=== PATIENT | male | born 1980 | race African-American/Black ===

== ENCOUNTER 2021-09-18 17:19 | Inpatient (IN) | payer OTHER ==
[2021-09-18] MEDS ORDERED: BISMUTH SUBSALICYLATE 524 MG/30 ML PO PRN (22:11)
[2021-09-18] MEDS ORDERED: MAG HYDROX/AL HYDROX/SIMETH 30 ML UNIT-DOSE CUP PO PRN (22:11)
[2021-09-18] MEDS ORDERED: guaiFENesin 200 MG/10 ML 10 ML UNIT-DOSE CUPS PO PRN (22:11)
[2021-09-18] MEDS ORDERED: MAGNESIUM HYDROX 2400MG/30ML ORAL SUSPENSION 30 ML CUP PO PRN (22:11)
[2021-09-18] MEDS ORDERED: MAGNESIUM CITRATE 300 ML BOTTLE PO PRN (22:11)
[2021-09-18] MEDS ORDERED: P-EPHED 60MG/TRIPROLIDI 2.5MG TABLET PO PRN (22:11)
[2021-09-18] MEDS ORDERED: DICYCLOMINE HCL 10 MG CAPSULE PO PRN (22:11)
[2021-09-18] MEDS ORDERED: ACETAMINOPHEN 325 MG TABLET (FP) PO PRN ×2 (22:11)
[2021-09-18] MEDS ORDERED: NICOTINE POLACRILEX 2 MG GUM BUC PRN (22:11)
[2021-09-18] MEDS ORDERED: ONDANSETRON *ODT* 4 MG TABLET SL PRN (22:11)
[2021-09-18] MEDS ORDERED: IBUPROFEN 400 MG TABLET (FP) PO PRN (22:11)
[2021-09-18] MEDS ORDERED: MENTHOL/PHENOL 1 EACH UD MM PRN (22:11)
[2021-09-18 22:48] VITALS: BMI 21.1
[2021-09-19] MEDS: hydrOXYzine PAMOATE 25 MG CAPSULE (FP) PO SCH ×5 (06:38→22:45)
[2021-09-19] MEDS ORDERED: LORazepam 1 MG TABLET PO PRN (10:33)
[2021-09-19] MEDS: PRENATAL VITAMINS W/ FOLIC ACID TABLET (FP) PO SCH (10:43)
[2021-09-19] MEDS: NICOTINE 14 MG/24 HOURS TOPICAL PATCH TD SCH (10:43)
[2021-09-19] MEDS: LORazepam 2 MG TABLET PO SCH ×3 (11:26→22:45)
[2021-09-19 13:30] LABS: CALCIUM 9.9 mg/dL (8.5-10.1)
[2021-09-19 13:33] LABS: BLOOD UREA NITROGEN 13.2 mg/dL (7-18)
[2021-09-19 13:34] LABS: CREATININE 0.7 mg/dL (0.55-1.3)
[2021-09-19 13:36] LABS: BILIRUBIN,TOTAL 1.5 mg/dL (0.2-1); TOT PROT 7.4 g/dl (6.4-8.2)
[2021-09-19 13:47] LABS: HEMATOCRIT 41.8 % (35.4-49); HEMOGLOBIN 13.9 GM/dL (11.7-16.9); MCH 32.7 pg (25.7-33.7); MCHC 33.1 g/dl (32.0-35.9); MEAN CELL VOLUME 98.7 fl (80-96); MEAN PLT VOLUME 10.3 fl (7.5-11.1); PLATELET COUNT 158 10^3/uL (134-434); RBC 4.24 M/mm3 (4.00-5.60); RDW 13.2 % (11.9-15.9); WHITE BLOOD COUNT 7.2 K/mm3 (4.0-10.0)
[2021-09-19] MEDS: THIAMINE HCL 100 MG TABLET (FP) PO SCH (22:45)
[2021-09-19] MEDS: MELATONIN 5 MG TABLETS PO SCH (22:45)
[2021-09-20] MEDS: hydrOXYzine PAMOATE 25 MG CAPSULE (FP) PO SCH ×5 (06:34→22:16)
[2021-09-20] MEDS: LORazepam 2 MG TABLET PO SCH ×4 (06:34→22:16)
[2021-09-20] MEDS: PRENATAL VITAMINS W/ FOLIC ACID TABLET (FP) PO SCH (10:39)
[2021-09-20] MEDS: NICOTINE 14 MG/24 HOURS TOPICAL PATCH TD SCH (10:39)
[2021-09-20] MEDS: MELATONIN 5 MG TABLETS PO SCH (22:15)
[2021-09-20] MEDS: THIAMINE HCL 100 MG TABLET (FP) PO SCH (22:16)
[2021-09-21] MEDS: hydrOXYzine PAMOATE 25 MG CAPSULE (FP) PO SCH ×5 (06:00→22:35)
[2021-09-21] MEDS: LORazepam 1 MG TABLET PO SCH ×4 (06:00→22:36)
[2021-09-21] MEDS: PRENATAL VITAMINS W/ FOLIC ACID TABLET (FP) PO SCH (10:54)
[2021-09-21] MEDS: METHOCARBAMOL 500 MG TABLET PO PRN (10:54)
[2021-09-21] MEDS: NICOTINE 14 MG/24 HOURS TOPICAL PATCH TD SCH (11:17)
[2021-09-21] MEDS: NICOTINE 10 MG CARTRIDGE (INHALER) IH PRN (13:35)
[2021-09-21] MEDS: MELATONIN 5 MG TABLETS PO SCH (22:35)
[2021-09-21] MEDS: THIAMINE HCL 100 MG TABLET (FP) PO SCH (22:36)
[2021-09-22] MEDS ORDERED: LORazepam 0.5 MG TABLET PO PRN
[2021-09-22] MEDS: hydrOXYzine PAMOATE 25 MG CAPSULE (FP) PO SCH ×5 (06:27→22:04)
[2021-09-22] MEDS: LORazepam 0.5 MG TABLET PO SCH ×4 (06:28→22:04)
[2021-09-22] MEDS: METHOCARBAMOL 500 MG TABLET PO PRN (10:46)
[2021-09-22] MEDS: PRENATAL VITAMINS W/ FOLIC ACID TABLET (FP) PO SCH (10:46)
[2021-09-22] MEDS: NICOTINE 14 MG/24 HOURS TOPICAL PATCH TD SCH (10:47)
[2021-09-22] MEDS: NICOTINE 10 MG CARTRIDGE (INHALER) IH PRN (17:50)
[2021-09-22] MEDS: THIAMINE HCL 100 MG TABLET (FP) PO SCH (22:05)
[2021-09-22] MEDS: MELATONIN 5 MG TABLETS PO SCH (22:05)
[2021-09-23] MEDS ORDERED: LORazepam 0.5 MG TABLET PO ONE (05:00)
[2021-09-23] MEDS: hydrOXYzine PAMOATE 25 MG CAPSULE (FP) PO SCH ×2 (06:28→10:57)
[2021-09-23 09:16] VITALS: BP 109/67; PULSE 95; TEMP 97.3
[2021-09-23] MEDS: NICOTINE 14 MG/24 HOURS TOPICAL PATCH TD SCH (10:57)
[2021-09-23] MEDS: PRENATAL VITAMINS W/ FOLIC ACID TABLET (FP) PO SCH (10:57)
[2021-09-25 12:15] LABS: SARS-CoV-2 NAA Not Detected
== END 2021-09-23 10:28 | disposition home or self-care (01) | DRG 775 ==
LOC: YASAS 17:19 → Y6N 09-19 01:49
PROVIDERS: ADMIT Allergy & Immunology; ATTEND Allergy & Immunology
PROC: HZ2ZZZZ Detoxification Services for Substance Abuse Treatment (ICD-10-PCS; principal; 2021-09-19)
DX: F10.230 Alcohol dependence with withdrawal, uncomplicated (principal); F12.20 Cannabis dependence, uncomplicated; F17.210 Nicotine dependence, cigarettes, uncomplicated; F19.282 Other psychoactive substance dependence with psychoactive substance-induced sleep disorder; F19.24 Other psychoactive substance dependence with psychoactive substance-induced mood disorder; E80.6 Other disorders of bilirubin metabolism; J45.20 Mild intermittent asthma, uncomplicated; L80 Vitiligo; Z56.0 Unemployment, unspecified; Z59.00 Homelessness unspecified
CPT/HCPCS: 36415; 80053; 85027; 86780; 93005; 93010; C9803; U0003; U0005

== ENCOUNTER 2023-07-13 15:25 | Inpatient (IN) | payer OTHER ==
[2023-07-13 16:42] VITALS: BMI 22.0
[2023-07-13] MEDS ORDERED: BENZOCAINE/MENTHOL (CHLORASEPTIC ) LOZENGE MM PRN (18:50)
[2023-07-13] MEDS ORDERED: NICOTINE POLACRILEX 2 MG GUM BUC PRN (18:50)
[2023-07-13] MEDS ORDERED: BISMUTH SUBSALICYLATE 524 MG/30 ML PO PRN (18:50)
[2023-07-13] MEDS ORDERED: POLYETHYLENE GLYCOL (HEALTHYLAX) 3350 17 GM PACKET PO PRN (18:50)
[2023-07-13] MEDS ORDERED: hydrOXYzine PAMOATE 25 MG CAPSULE (FP) PO PRN (18:50)
[2023-07-13] MEDS ORDERED: IBUPROFEN 600 MG TABLET (FP) PO PRN (18:50)
[2023-07-13] MEDS ORDERED: ACETAMINOPHEN 325 MG TABLET (FP) PO PRN (18:50)
[2023-07-13] MEDS ORDERED: MAG HYDROX/AL HYDROX/SIMETH 30 ML UNIT-DOSE CUP PO PRN (18:50)
[2023-07-13] MEDS ORDERED: NALOXONE HCL (KLOXXADO) 8 MG SPRAY NS PRN (18:50)
[2023-07-13] MEDS ORDERED: MAGNESIUM HYDROX 2400MG/30ML ORAL SUSPENSION 30 ML CUP PO PRN (18:50)
[2023-07-13] MEDS ORDERED: IBUPROFEN 400 MG TABLET (FP) PO PRN (18:50)
[2023-07-13] MEDS ORDERED: ONDANSETRON *ODT* 4 MG TABLET SL PRN (18:50)
[2023-07-13] MEDS ORDERED: guaiFENesin 600 MG TABLET.ER (FP) PO PRN (18:50)
[2023-07-13] MEDS ORDERED: BENZONATATE 200 MG CAPSULE PO PRN (18:50)
[2023-07-13] MEDS ORDERED: METHOCARBAMOL 500 MG TABLET PO PRN (18:50)
[2023-07-13] MEDS ORDERED: LOPERAMIDE HCL 2 MG CAPSULE PO PRN (18:50)
[2023-07-13] MEDS ORDERED: NALOXONE HCL 0.4 MG/ML VIAL IM PRN (18:50)
[2023-07-13] MEDS ORDERED: DICYCLOMINE HCL 10 MG CAPSULE PO PRN (18:50)
[2023-07-13] MEDS ORDERED: THIAMINE HCL 100 MG TABLET (FP) PO SCH (22:00)
[2023-07-13] MEDS ORDERED: MELATONIN 5 MG TABLETS PO SCH (22:00)
[2023-07-14] MEDS ORDERED: ALBUTEROL SO4 HFA INHALER IH PRN (09:15)
[2023-07-14] MEDS ORDERED: PRENATAL VITAMINS W/ FOLIC ACID TABLET (FP) PO SCH (10:00)
[2023-07-14] MEDS ORDERED: NICOTINE 14 MG/24 HOURS TOPICAL PATCH TD SCH (10:00)
[2023-07-14 10:40] LABS: CHLORIDE 104 mmol/L (98-107); POTASSIUM 3.8 mmol/L (3.5-5.1); SODIUM 138 mmol/L (136-145)
[2023-07-14 10:44] LABS: HEMATOCRIT 37.6 % (35.4-49); HEMOGLOBIN 12.6 GM/dL (11.7-16.9); MCH 33.4 pg (25.7-33.7); MCHC 33.4 g/dl (32.0-35.9); MEAN PLT VOLUME 9.5 fl (7.5-11.1); PLATELET COUNT 171 10^3/uL (134-434); RBC 3.76 M/mm3 (4.00-5.60); RDW 14.9 % (11.9-15.9); WHITE BLOOD COUNT 6.6 K/mm3 (4.0-10.0)
[2023-07-14 10:45] LABS: ALBUMIN 2.9 g/dl (3.4-5.0); BLOOD UREA NITROGEN 14.9 mg/dL (7-18); GLUCOSE,RANDOM 86 mg/dL (74-106)
[2023-07-14 10:46] LABS: ANION GAP 5 mmol/L (4-13); CO2 28 mmol/L (21-32)
[2023-07-14 10:47] LABS: CREATININE 0.7 mg/dL (0.55-1.3); SGOT/AST 17 U/L (15-37); SGPT/ALT 24 U/L (13-61)
[2023-07-14 10:48] LABS: CALCIUM 8.4 mg/dL (8.5-10.1)
[2023-07-14 10:49] LABS: BILIRUBIN,TOTAL 1.4 mg/dL (0.2-1); TOT PROT 5.5 g/dl (6.4-8.2)
[2023-07-14 10:50] LABS: ALK PHOS 42 U/L (45-117)
[2023-07-14 13:19] VITALS: BP 126/79; PULSE 84; RESP 17; TEMP 96.8
== END 2023-07-14 14:13 | disposition other institution (70) | DRG 775 ==
LOC: YASAS 15:25 → Y3N 19:30
PROVIDERS: ADMIT Allergy & Immunology; ATTEND Surgery
PROC: HZ2ZZZZ Detoxification Services for Substance Abuse Treatment (ICD-10-PCS; principal; 2023-07-13)
DX: F10.20 Alcohol dependence, uncomplicated (principal); F12.20 Cannabis dependence, uncomplicated; F17.210 Nicotine dependence, cigarettes, uncomplicated; F41.9 Anxiety disorder, unspecified; F32.A Depression, unspecified; J45.20 Mild intermittent asthma, uncomplicated
CPT/HCPCS: 36415; 80053; 80307; 85027; 86780; 87635

== ENCOUNTER 2023-07-14 14:22 | Inpatient (IN) | payer OTHER ==
[2023-07-14] MEDS ORDERED: METHOCARBAMOL 500 MG TABLET PO PRN (15:50)
[2023-07-14] MEDS ORDERED: hydrOXYzine PAMOATE 25 MG CAPSULE (FP) PO PRN (15:50)
[2023-07-14] MEDS ORDERED: LOPERAMIDE HCL 2 MG CAPSULE PO PRN (15:50)
[2023-07-14] MEDS ORDERED: MAGNESIUM HYDROX 2400MG/30ML ORAL SUSPENSION 30 ML CUP PO PRN (15:50)
[2023-07-14] MEDS ORDERED: BENZONATATE 200 MG CAPSULE PO PRN (15:50)
[2023-07-14] MEDS ORDERED: POLYETHYLENE GLYCOL (HEALTHYLAX) 3350 17 GM PACKET PO PRN (15:50)
[2023-07-14] MEDS ORDERED: NALOXONE HCL 0.4 MG/ML VIAL IVPUSH PRN (15:50)
[2023-07-14] MEDS ORDERED: ACETAMINOPHEN 325 MG TABLET (FP) PO PRN (15:50)
[2023-07-14] MEDS ORDERED: guaiFENesin 600 MG TABLET.ER (FP) PO PRN (15:50)
[2023-07-14] MEDS ORDERED: COLLOIDAL OATMEAL 1 BAR EACH TP PRN (15:50)
[2023-07-14] MEDS ORDERED: MAG HYDROX/AL HYDROX/SIMETH 30 ML UNIT-DOSE CUP PO PRN (15:50)
[2023-07-14] MEDS ORDERED: NICOTINE POLACRILEX 4 MG GUM BUC PRN (15:50)
[2023-07-14] MEDS ORDERED: NALOXONE HCL (KLOXXADO) 8 MG SPRAY NS PRN (15:50)
[2023-07-14] MEDS ORDERED: NICOTINE 14 MG/24 HOURS TOPICAL PATCH TD PRN (15:50)
[2023-07-14] MEDS ORDERED: BENZOCAINE/MENTHOL (CHLORASEPTIC ) LOZENGE MM PRN (15:50)
[2023-07-14] MEDS ORDERED: ALBUTEROL SO4 HFA INHALER IH PRN (15:52)
[2023-07-14] MEDS: CLOTRIMAZOLE 10 MG TROCHE PO SCH ×2 (18:40→21:29)
[2023-07-14] MEDS: THIAMINE HCL 100 MG TABLET (FP) PO SCH (21:28)
[2023-07-14] MEDS: MELATONIN 5 MG TABLETS PO SCH (21:28)
[2023-07-15] MEDS: CLOTRIMAZOLE 10 MG TROCHE PO SCH ×5 (06:52→21:00)
[2023-07-15] MEDS: PRENATAL VITAMINS W/ FOLIC ACID TABLET (FP) PO SCH (10:11)
[2023-07-15] MEDS: LACTULOSE 20 GM/30 ML UDC (FOR ORAL USE ONLY) PO SCH ×2 (14:35→21:00)
[2023-07-15] MEDS: MELATONIN 5 MG TABLETS PO SCH (21:00)
[2023-07-15] MEDS: THIAMINE HCL 100 MG TABLET (FP) PO SCH (21:00)
[2023-07-16] MEDS: LACTULOSE 20 GM/30 ML UDC (FOR ORAL USE ONLY) PO SCH (05:59)
[2023-07-16] MEDS: CLOTRIMAZOLE 10 MG TROCHE PO SCH ×5 (06:00→21:22)
[2023-07-16] MEDS: PRENATAL VITAMINS W/ FOLIC ACID TABLET (FP) PO SCH (09:43)
[2023-07-16] MEDS: MELATONIN 5 MG TABLETS PO SCH (21:22)
[2023-07-16] MEDS: THIAMINE HCL 100 MG TABLET (FP) PO SCH (21:22)
[2023-07-17] MEDS: CLOTRIMAZOLE 10 MG TROCHE PO SCH (06:24)
[2023-07-17] MEDS ORDERED: diphenhydrAMINE HCL 25 MG CAPSULE (FP) PO PRN (09:18)
[2023-07-17] MEDS ORDERED: HYDROCORTISONE 1% TOPICAL OINT 30 GM TUBE TP PRN (09:18)
[2023-07-17] MEDS: PRENATAL VITAMINS W/ FOLIC ACID TABLET (FP) PO SCH (10:48)
[2023-07-17] MEDS: THIAMINE HCL 100 MG TABLET (FP) PO SCH (21:19)
[2023-07-17] MEDS: MELATONIN 5 MG TABLETS PO SCH (21:19)
[2023-07-18] MEDS: IBUPROFEN 600 MG TABLET (FP) PO PRN (10:02)
[2023-07-18] MEDS: PRENATAL VITAMINS W/ FOLIC ACID TABLET (FP) PO SCH (10:02)
[2023-07-18] MEDS: THIAMINE HCL 100 MG TABLET (FP) PO SCH (21:23)
[2023-07-18] MEDS: MELATONIN 5 MG TABLETS PO SCH (21:23)
[2023-07-19] MEDS: PRENATAL VITAMINS W/ FOLIC ACID TABLET (FP) PO SCH (10:23)
[2023-07-19] MEDS: THIAMINE HCL 100 MG TABLET (FP) PO SCH (21:05)
[2023-07-19] MEDS: MELATONIN 5 MG TABLETS PO SCH (21:05)
[2023-07-19] MEDS: IBUPROFEN 600 MG TABLET (FP) PO PRN (21:06)
[2023-07-20] MEDS: PRENATAL VITAMINS W/ FOLIC ACID TABLET (FP) PO SCH (09:49)
[2023-07-20] MEDS: MELATONIN 5 MG TABLETS PO SCH (21:37)
[2023-07-20] MEDS: THIAMINE HCL 100 MG TABLET (FP) PO SCH (21:37)
[2023-07-20] MEDS: IBUPROFEN 400 MG TABLET (FP) PO PRN (21:40)
[2023-07-21] MEDS: PRENATAL VITAMINS W/ FOLIC ACID TABLET (FP) PO SCH ×2 (10:35→10:59)
[2023-07-21] MEDS: IBUPROFEN 600 MG TABLET (FP) PO PRN (14:20)
[2023-07-21] MEDS: MELATONIN 5 MG TABLETS PO SCH (21:25)
[2023-07-21] MEDS: THIAMINE HCL 100 MG TABLET (FP) PO SCH (21:25)
[2023-07-21] MEDS: IBUPROFEN 400 MG TABLET (FP) PO PRN (21:45)
[2023-07-22] MEDS: PRENATAL VITAMINS W/ FOLIC ACID TABLET (FP) PO SCH (09:58)
[2023-07-22] MEDS: MELATONIN 5 MG TABLETS PO SCH (21:22)
[2023-07-22] MEDS: IBUPROFEN 400 MG TABLET (FP) PO PRN (21:22)
[2023-07-22] MEDS: THIAMINE HCL 100 MG TABLET (FP) PO SCH (21:22)
[2023-07-23 07:06] VITALS: TEMP 97.5
[2023-07-23] MEDS: PRENATAL VITAMINS W/ FOLIC ACID TABLET (FP) PO SCH (10:12)
[2023-07-23] MEDS: THIAMINE HCL 100 MG TABLET (FP) PO SCH (21:01)
[2023-07-23] MEDS: MELATONIN 5 MG TABLETS PO SCH (21:01)
[2023-07-23] MEDS: IBUPROFEN 400 MG TABLET (FP) PO PRN (21:02)
[2023-07-24] MEDS: PRENATAL VITAMINS W/ FOLIC ACID TABLET (FP) PO SCH (09:37)
[2023-07-24] MEDS: IBUPROFEN 400 MG TABLET (FP) PO PRN (18:50)
[2023-07-24] MEDS: MELATONIN 5 MG TABLETS PO SCH (21:19)
[2023-07-24] MEDS: THIAMINE HCL 100 MG TABLET (FP) PO SCH (21:19)
[2023-07-25 07:09] VITALS: BP 107/52; PULSE 99; RESP 18
[2023-07-25] MEDS: IBUPROFEN 600 MG TABLET (FP) PO PRN (07:10)
[2023-07-25] MEDS: PRENATAL VITAMINS W/ FOLIC ACID TABLET (FP) PO SCH (10:05)
== END 2023-07-25 10:43 | disposition home or self-care (01) | DRG 772 ==
LOC: YASAS 14:22 → Y3W 14:23
PROVIDERS: ADMIT Allergy & Immunology; ATTEND Psychiatry & Neurology Pain Medicine
PROC: HZ42ZZZ Group Counseling for Substance Abuse Treatment, Cognitive-Behavioral (ICD-10-PCS; principal; 2023-07-14)
DX: F10.20 Alcohol dependence, uncomplicated (principal); F17.210 Nicotine dependence, cigarettes, uncomplicated; F32.A Depression, unspecified; E72.20 Disorder of urea cycle metabolism, unspecified; J45.20 Mild intermittent asthma, uncomplicated; L80 Vitiligo; L27.1 Localized skin eruption due to drugs and medicaments taken internally; T47.3X5A Adverse effect of saline and osmotic laxatives, initial encounter; Y92.230 Patient room in hospital as the place of occurrence of the external cause
CPT/HCPCS: 36415; 82140; 86803

== ENCOUNTER 2023-09-01 14:34 | Inpatient (IN) | payer OTHER ==
[2023-09-01 15:48] VITALS: BMI 22.5
[2023-09-01] MEDS ORDERED: MAG HYDROX/AL HYDROX/SIMETH 30 ML UNIT-DOSE CUP PO PRN (17:40)
[2023-09-01] MEDS ORDERED: NICOTINE POLACRILEX 2 MG GUM BUC PRN (17:40)
[2023-09-01] MEDS ORDERED: BENZOCAINE/MENTHOL (CHLORASEPTIC ) LOZENGE MM PRN (17:40)
[2023-09-01] MEDS ORDERED: IBUPROFEN 400 MG TABLET (FP) PO PRN (17:40)
[2023-09-01] MEDS ORDERED: DICYCLOMINE HCL 10 MG CAPSULE PO PRN (17:40)
[2023-09-01] MEDS ORDERED: MAGNESIUM HYDROX 2400MG/30ML ORAL SUSPENSION 30 ML CUP PO PRN (17:40)
[2023-09-01] MEDS ORDERED: POLYETHYLENE GLYCOL (HEALTHYLAX) 3350 17 GM PACKET PO PRN (17:40)
[2023-09-01] MEDS ORDERED: ACETAMINOPHEN 325 MG TABLET (FP) PO PRN (17:40)
[2023-09-01] MEDS ORDERED: BENZONATATE 200 MG CAPSULE PO PRN (17:40)
[2023-09-01] MEDS ORDERED: P-EPHED 60MG/TRIPROLIDI 2.5MG TABLET PO PRN (17:40)
[2023-09-01] MEDS ORDERED: BISMUTH SUBSALICYLATE 524 MG/30 ML PO PRN (17:40)
[2023-09-01] MEDS ORDERED: LOPERAMIDE HCL 2 MG CAPSULE PO PRN (17:40)
[2023-09-01] MEDS ORDERED: ONDANSETRON *ODT* 4 MG TABLET SL PRN (17:40)
[2023-09-01] MEDS ORDERED: IBUPROFEN 600 MG TABLET (FP) PO PRN (17:40)
[2023-09-01] MEDS ORDERED: guaiFENesin 600 MG TABLET.ER (FP) PO PRN (17:40)
[2023-09-01] MEDS ORDERED: chlordiazePOXIDE HCL 25 MG CAPSULE PO PRN (17:42)
[2023-09-01] MEDS ORDERED: ALBUTEROL SO4 HFA INHALER IH PRN (19:11)
[2023-09-01] MEDS: THIAMINE HCL 100 MG TABLET (FP) PO SCH (22:25)
[2023-09-01] MEDS: MELATONIN 5 MG TABLETS PO SCH (22:25)
[2023-09-01] MEDS: chlordiazePOXIDE HCL 25 MG CAPSULE PO SCH (22:25)
[2023-09-01] MEDS: levETIRAcetam XR 500 MG TAB PO SCH (22:40)
[2023-09-01] MEDS: BUDESONIDE/FORMETEROL FUMARATE 160/4.5 mcg INHALER IH SCH (22:59)
[2023-09-02] MEDS: chlordiazePOXIDE HCL 25 MG CAPSULE PO SCH ×4 (05:19→22:22)
[2023-09-02] MEDS: levETIRAcetam XR 500 MG TAB PO SCH ×2 (10:18→22:23)
[2023-09-02] MEDS: PRENATAL VITAMINS W/ FOLIC ACID TABLET (FP) PO SCH (10:18)
[2023-09-02] MEDS: BUDESONIDE/FORMETEROL FUMARATE 160/4.5 mcg INHALER IH SCH ×2 (10:19→22:23)
[2023-09-02 11:33] LABS: HEMATOCRIT 40.5 % (35.4-49); HEMOGLOBIN 13.3 GM/dL (11.7-16.9); MCH 31.9 pg (25.7-33.7); MCHC 32.7 g/dl (32.0-35.9); MEAN CELL VOLUME 97.5 fl (80-96); MEAN PLT VOLUME 9.6 fl (7.5-11.1); PLATELET COUNT 181 10^3/uL (134-434); RBC 4.16 M/mm3 (4.00-5.60); RDW 13.4 % (11.9-15.9); WHITE BLOOD COUNT 3.5 K/mm3 (4.0-10.0)
[2023-09-02 11:40] LABS: CHLORIDE 104 mmol/L (98-107); POTASSIUM 3.8 mmol/L (3.5-5.1); SODIUM 137 mmol/L (136-145)
[2023-09-02 11:57] LABS: ANION GAP 3 mmol/L (4-13); CO2 29 mmol/L (21-32)
[2023-09-02 15:35] LABS: CALCIUM 9.3 mg/dL (8.5-10.1)
[2023-09-02 15:36] LABS: BLOOD UREA NITROGEN 6.2 mg/dL (7-18); GLUCOSE,RANDOM 90 mg/dL (74-106)
[2023-09-02 15:39] LABS: CREATININE 0.7 mg/dL (0.55-1.3); SGOT/AST 19 U/L (15-37); SGPT/ALT 22 U/L (13-61)
[2023-09-02 15:41] LABS: BILIRUBIN,TOTAL 0.7 mg/dL (0.2-1); TOT PROT 5.8 g/dl (6.4-8.2)
[2023-09-02 15:42] LABS: ALK PHOS 59 U/L (45-117)
[2023-09-02] MEDS: THIAMINE HCL 100 MG TABLET (FP) PO SCH (22:22)
[2023-09-02] MEDS: MELATONIN 5 MG TABLETS PO SCH (22:22)
[2023-09-03] MEDS: chlordiazePOXIDE HCL 25 MG CAPSULE PO SCH ×4 (05:19→22:55)
[2023-09-03] MEDS: PRENATAL VITAMINS W/ FOLIC ACID TABLET (FP) PO SCH (10:21)
[2023-09-03] MEDS: levETIRAcetam XR 500 MG TAB PO SCH ×2 (10:21→22:12)
[2023-09-03] MEDS: BUDESONIDE/FORMETEROL FUMARATE 160/4.5 mcg INHALER IH SCH ×2 (10:27→23:12)
[2023-09-03] MEDS: MELATONIN 5 MG TABLETS PO SCH (22:12)
[2023-09-03] MEDS: THIAMINE HCL 100 MG TABLET (FP) PO SCH (22:13)
[2023-09-04] MEDS ORDERED: chlordiazePOXIDE HCL 10 MG CAPSULE PO PRN
[2023-09-04] MEDS: chlordiazePOXIDE HCL 10 MG CAPSULE PO SCH ×4 (05:50→22:54)
[2023-09-04] MEDS ORDERED: guaiFENesin 200 MG/10 ML 10 ML UNIT-DOSE CUPS PO PRN (10:17)
[2023-09-04] MEDS: PRENATAL VITAMINS W/ FOLIC ACID TABLET (FP) PO SCH (10:18)
[2023-09-04] MEDS: levETIRAcetam XR 500 MG TAB PO SCH ×2 (10:18→22:52)
[2023-09-04] MEDS: BUDESONIDE/FORMETEROL FUMARATE 160/4.5 mcg INHALER IH SCH ×2 (10:19→22:54)
[2023-09-04] MEDS: BENZONATATE 200 MG CAPSULE PO SCH ×2 (10:40→17:38)
[2023-09-04] MEDS ORDERED: AZITHROMYCIN 250 MG TABLET PO ONE (16:41)
[2023-09-04] MEDS: MELATONIN 5 MG TABLETS PO SCH (22:53)
[2023-09-04] MEDS: THIAMINE HCL 100 MG TABLET (FP) PO SCH (22:53)
[2023-09-05] MEDS: BENZONATATE 200 MG CAPSULE PO SCH ×2 (02:50→09:53)
[2023-09-05] MEDS ORDERED: chlordiazePOXIDE HCL 10 MG CAPSULE PO SCH (05:00)
[2023-09-05] MEDS: levETIRAcetam XR 500 MG TAB PO SCH (09:53)
[2023-09-05] MEDS: PRENATAL VITAMINS W/ FOLIC ACID TABLET (FP) PO SCH (09:53)
[2023-09-05] MEDS: BUDESONIDE/FORMETEROL FUMARATE 160/4.5 mcg INHALER IH SCH (09:54)
[2023-09-05] MEDS ORDERED: AZITHROMYCIN 250 MG TABLET PO SCH (10:00)
[2023-09-05 10:48] VITALS: PULSE 95; RESP 18
[2023-09-05 13:03] VITALS: BP 103/57; TEMP 97.3
[2023-09-06] MEDS ORDERED: chlordiazePOXIDE HCL 10 MG CAPSULE PO ONE (05:00)
== END 2023-09-05 15:45 | disposition home or self-care (01) | DRG 775 ==
LOC: YASAS 14:34 → Y6N 18:14
PROVIDERS: ADMIT Allergy & Immunology; ATTEND Allergy & Immunology
PROC: HZ2ZZZZ Detoxification Services for Substance Abuse Treatment (ICD-10-PCS; principal; 2023-09-01)
DX: F10.230 Alcohol dependence with withdrawal, uncomplicated (principal); F12.20 Cannabis dependence, uncomplicated; F17.210 Nicotine dependence, cigarettes, uncomplicated; U07.1 COVID-19; G40.909 Epilepsy, unspecified, not intractable, without status epilepticus; J45.20 Mild intermittent asthma, uncomplicated; Z56.0 Unemployment, unspecified; Z59.00 Homelessness unspecified
CPT/HCPCS: 0241U-QW; 36415; 71045-TC-FY; 80053; 80307; 85027; 86780; 87635

== ENCOUNTER 2023-09-23 16:36 | Inpatient (IN) | payer OTHER ==
[2023-09-23 18:09] VITALS: BMI 24.3
[2023-09-23] MEDS ORDERED: POLYETHYLENE GLYCOL (HEALTHYLAX) 3350 17 GM PACKET PO PRN (20:23)
[2023-09-23] MEDS ORDERED: ACETAMINOPHEN 325 MG TABLET (FP) PO PRN (20:23)
[2023-09-23] MEDS ORDERED: MAGNESIUM HYDROX 2400MG/30ML ORAL SUSPENSION 30 ML CUP PO PRN (20:23)
[2023-09-23] MEDS ORDERED: BENZOCAINE/MENTHOL (CHLORASEPTIC ) LOZENGE MM PRN (20:23)
[2023-09-23] MEDS ORDERED: MAG HYDROX/AL HYDROX/SIMETH 30 ML UNIT-DOSE CUP PO PRN (20:23)
[2023-09-23] MEDS ORDERED: NICOTINE POLACRILEX 2 MG GUM BUC PRN (20:23)
[2023-09-23] MEDS ORDERED: DICYCLOMINE HCL 10 MG CAPSULE PO PRN (20:23)
[2023-09-23] MEDS ORDERED: LOPERAMIDE HCL 2 MG CAPSULE PO PRN (20:23)
[2023-09-23] MEDS ORDERED: NALOXONE HCL 0.4 MG/ML VIAL IM PRN (20:23)
[2023-09-23] MEDS ORDERED: NALOXONE HCL (KLOXXADO) 8 MG SPRAY NS PRN (20:23)
[2023-09-23] MEDS ORDERED: IBUPROFEN 400 MG TABLET (FP) PO PRN (20:23)
[2023-09-23] MEDS ORDERED: ONDANSETRON *ODT* 4 MG TABLET SL PRN (20:23)
[2023-09-23] MEDS ORDERED: BENZONATATE 200 MG CAPSULE PO PRN (20:23)
[2023-09-23] MEDS ORDERED: BISMUTH SUBSALICYLATE 524 MG/30 ML PO PRN (20:23)
[2023-09-23] MEDS ORDERED: guaiFENesin 600 MG TABLET.ER (FP) PO PRN (20:23)
[2023-09-23] MEDS ORDERED: MELATONIN 5 MG TABLETS ONE (22:22)
[2023-09-23] MEDS: MELATONIN 5 MG TABLETS PO SCH (22:25)
[2023-09-23] MEDS: THIAMINE HCL 100 MG TABLET (FP) PO SCH (22:25)
[2023-09-24] MEDS ORDERED: chlordiazePOXIDE HCL 25 MG CAPSULE PO PRN (09:56)
[2023-09-24] MEDS ORDERED: ALBUTEROL SO4 HFA INHALER IH PRN (10:06)
[2023-09-24] MEDS: BUDESONIDE/FORMETEROL FUMARATE 160/4.5 mcg INHALER IH SCH (10:28)
[2023-09-24] MEDS: PRENATAL VITAMINS W/ FOLIC ACID TABLET (FP) PO SCH (10:28)
[2023-09-24] MEDS: chlordiazePOXIDE HCL 25 MG CAPSULE PO SCH (10:29)
[2023-09-24] MEDS: NICOTINE 21 MG/24 HOURS TOPICAL PATCH TD SCH (10:29)
[2023-09-24 11:28] LABS: HEMATOCRIT 41.4 % (35.4-49); HEMOGLOBIN 13.7 GM/dL (11.7-16.9); MCH 31.9 pg (25.7-33.7); MCHC 33.1 g/dl (32.0-35.9); MEAN CELL VOLUME 96.3 fl (80-96); MEAN PLT VOLUME 9.3 fl (7.5-11.1); PLATELET COUNT 152 10^3/uL (134-434); RDW 13.5 % (11.9-15.9); WHITE BLOOD COUNT 4.2 K/mm3 (4.0-10.0)
[2023-09-24 12:00] LABS: CHLORIDE 104 mmol/L (98-107); POTASSIUM 3.9 mmol/L (3.5-5.1); SODIUM 140 mmol/L (136-145)
[2023-09-24 12:02] LABS: BLOOD UREA NITROGEN 8.2 mg/dL (7-18)
[2023-09-24 12:03] LABS: ALBUMIN 3.1 g/dl (3.4-5.0); ANION GAP 6 mmol/L (4-13); CO2 30 mmol/L (21-32); GLUCOSE,RANDOM 82 mg/dL (74-106)
[2023-09-24 12:05] LABS: CREATININE 0.7 mg/dL (0.55-1.3); SGPT/ALT 19 U/L (13-61)
[2023-09-24 12:06] LABS: SGOT/AST 20 U/L (15-37)
[2023-09-24 12:07] LABS: BILIRUBIN,TOTAL 1.6 mg/dL (0.2-1)
[2023-09-24 12:27] LABS: ALK PHOS 58 U/L (45-117)
[2023-09-24] MEDS: levETIRAcetam XR 500 MG TAB PO SCH (21:52)
[2023-09-24] MEDS: hydrOXYzine PAMOATE 25 MG CAPSULE (FP) PO PRN (21:52)
[2023-09-24] MEDS: METHOCARBAMOL 500 MG TABLET PO PRN (21:53)
[2023-09-25] MEDS: IBUPROFEN 600 MG TABLET (FP) PO PRN (17:14)
[2023-09-26] MEDS: chlordiazePOXIDE HCL 25 MG CAPSULE PO SCH (05:24)
[2023-09-26 11:59] LABS: BILIRUBIN,DIRECT 0.1 mg/dL (0.0-0.2)
[2023-09-26 12:01] LABS: BILIRUBIN,TOTAL 1.2 mg/dL (0.2-1)
[2023-09-27] MEDS ORDERED: chlordiazePOXIDE HCL 10 MG CAPSULE PO PRN
[2023-09-27] MEDS: chlordiazePOXIDE HCL 10 MG CAPSULE PO SCH (05:41)
[2023-09-28] MEDS: chlordiazePOXIDE HCL 10 MG CAPSULE PO SCH (05:55)
[2023-09-28 09:22] VITALS: BP 100/63; PULSE 84; RESP 17; TEMP 97.8
[2023-09-29] MEDS ORDERED: chlordiazePOXIDE HCL 10 MG CAPSULE PO ONE (05:00)
== END 2023-09-28 11:55 | disposition home or self-care (01) | DRG 775 ==
LOC: YASAS 16:36 → Y6N 21:49
PROVIDERS: ADMIT Allergy & Immunology; ATTEND Surgery
PROC: HZ2ZZZZ Detoxification Services for Substance Abuse Treatment (ICD-10-PCS; principal; 2023-09-23)
DX: F10.230 Alcohol dependence with withdrawal, uncomplicated (principal); F17.210 Nicotine dependence, cigarettes, uncomplicated; F41.9 Anxiety disorder, unspecified; F32.A Depression, unspecified; G40.909 Epilepsy, unspecified, not intractable, without status epilepticus; J45.20 Mild intermittent asthma, uncomplicated; L80 Vitiligo; Z56.0 Unemployment, unspecified; Z59.00 Homelessness unspecified
CPT/HCPCS: 36415; 80053; 80305; 80307; 82247; 82248; 85027; 86780; 87635; 87811; 93005; 93010

== ENCOUNTER 2024-05-05 16:12 | Inpatient (IN) | payer OTHER ==
[2024-05-05 16:54] VITALS: BMI 24.3
[2024-05-05] MEDS ORDERED: chlordiazePOXIDE HCL 25 MG CAPSULE PO PRN (17:09)
[2024-05-05] MEDS ORDERED: ALBUTEROL SO4 HFA INHALER IH PRN (17:09)
[2024-05-05] MEDS ORDERED: IBUPROFEN 600 MG TABLET (FP) PO PRN (17:15)
[2024-05-05] MEDS ORDERED: IBUPROFEN 400 MG TABLET (FP) PO PRN (17:15)
[2024-05-05] MEDS ORDERED: BENZONATATE 200 MG CAPSULE PO PRN (17:15)
[2024-05-05] MEDS ORDERED: BENZOCAINE/MENTHOL (CHLORASEPTIC ) LOZENGE MM PRN (17:15)
[2024-05-05] MEDS ORDERED: POLYETHYLENE GLYCOL (HEALTHYLAX) 3350 17 GM PACKET PO PRN (17:15)
[2024-05-05] MEDS ORDERED: ONDANSETRON *ODT* 4 MG TABLET SL PRN (17:15)
[2024-05-05] MEDS ORDERED: MAGNESIUM HYDROX 2400MG/30ML ORAL SUSPENSION 30 ML CUP PO PRN (17:15)
[2024-05-05] MEDS ORDERED: BISMUTH SUBSALICYLATE 524 MG/30 ML PO PRN (17:15)
[2024-05-05] MEDS ORDERED: guaiFENesin 600 MG TABLET.ER (FP) PO PRN (17:15)
[2024-05-05] MEDS ORDERED: NICOTINE POLACRILEX 2 MG GUM BUC PRN (17:15)
[2024-05-05] MEDS ORDERED: LOPERAMIDE HCL 2 MG CAPSULE PO PRN (17:15)
[2024-05-05] MEDS ORDERED: DICYCLOMINE HCL 10 MG CAPSULE PO PRN (17:15)
[2024-05-05] MEDS ORDERED: ACETAMINOPHEN 325 MG TABLET (FP) PO PRN (17:15)
[2024-05-05] MEDS ORDERED: NICOTINE POLACRILEX 2 MG LOZENGE BC PRN (17:15)
[2024-05-05] MEDS ORDERED: MAG HYDROX/AL HYDROX/SIMETH 30 ML UNIT-DOSE CUP PO PRN (17:15)
[2024-05-05] MEDS ORDERED: chlordiazePOXIDE HCL 25 MG CAPSULE ONE (17:47)
[2024-05-05] MEDS: chlordiazePOXIDE HCL 25 MG CAPSULE PO SCH (17:50)
[2024-05-05] MEDS: THIAMINE 100 MG TABLET PO SCH (22:33)
[2024-05-05] MEDS: MELATONIN 5 MG TABLETS PO SCH (22:34)
[2024-05-05] MEDS: BUDESONIDE/FORMETEROL FUMARATE 160/4.5 mcg INHALER IH SCH (22:36)
[2024-05-05] MEDS: levETIRAcetam XR 500 MG TAB PO SCH (22:55)
[2024-05-06] MEDS: PRENATAL VITAMINS W/ FOLIC ACID TABLET (FP) PO SCH (09:52)
[2024-05-06 13:37] LABS: HEMATOCRIT 43.6 % (35.4-49); HEMOGLOBIN 14.5 GM/dL (11.7-16.9); MCH 32.6 pg (25.7-33.7); MCHC 33.4 g/dl (32.0-35.9); MEAN CELL VOLUME 97.7 fl (80-96); MEAN PLT VOLUME 9.4 fl (7.5-11.1); PLATELET COUNT 189 10^3/uL (134-434); RBC 4.46 M/mm3 (4.00-5.60); RDW 13.4 % (11.9-15.9); WHITE BLOOD COUNT 5.1 K/mm3 (4.0-10.0)
[2024-05-06 13:57] LABS: CHLORIDE 99 mmol/L (98-107); POTASSIUM 3.9 mmol/L (3.5-5.1); SODIUM 136 mmol/L (136-145)
[2024-05-06 14:09] LABS: GLUCOSE,RANDOM 93 mg/dL (74-106)
[2024-05-06 14:10] LABS: ALBUMIN 3.7 g/dl (3.4-5.0); ANION GAP 6 mmol/L (4-13); BLOOD UREA NITROGEN 6.6 mg/dL (7-18); CALCIUM 10.1 mg/dL (8.5-10.1); CO2 30 mmol/L (21-32)
[2024-05-06 14:11] LABS: BILIRUBIN,TOTAL 1.7 mg/dL (0.2-1)
[2024-05-06 14:13] LABS: ALK PHOS 77 U/L (45-117); CREATININE 0.8 mg/dL (0.55-1.3); SGPT/ALT 47 U/L (13-61)
[2024-05-06 14:14] LABS: SGOT/AST 31 U/L (15-37)
[2024-05-06 14:15] LABS: TOT PROT 7.1 g/dl (6.4-8.2)
[2024-05-07] MEDS: chlordiazePOXIDE HCL 25 MG CAPSULE PO SCH (05:48)
[2024-05-08] MEDS ORDERED: chlordiazePOXIDE HCL 10 MG CAPSULE PO PRN
[2024-05-08] MEDS: chlordiazePOXIDE HCL 10 MG CAPSULE PO SCH (05:48)
[2024-05-08] MEDS: hydrOXYzine PAMOATE 25 MG CAPSULE (FP) PO PRN (10:17)
[2024-05-08] MEDS: METHOCARBAMOL 500 MG TABLET PO PRN (10:17)
[2024-05-09] MEDS: chlordiazePOXIDE HCL 10 MG CAPSULE PO SCH (05:38)
[2024-05-10] MEDS: chlordiazePOXIDE HCL 10 MG CAPSULE PO ONE (05:21)
[2024-05-10 08:45] VITALS: BP 113/70; PULSE 80; RESP 17; TEMP 97.7
== END 2024-05-10 09:50 | disposition other institution (70) | DRG 775 ==
LOC: YASAS 16:12 → Y6N 17:32
PROVIDERS: ADMIT Allergy & Immunology; ATTEND Surgery
PROC: HZ2ZZZZ Detoxification Services for Substance Abuse Treatment (ICD-10-PCS; principal; 2024-05-05)
DX: F10.230 Alcohol dependence with withdrawal, uncomplicated (principal); F17.210 Nicotine dependence, cigarettes, uncomplicated; F10.280 Alcohol dependence with alcohol-induced anxiety disorder; F32.9 Major depressive disorder, single episode, unspecified; F41.9 Anxiety disorder, unspecified; G40.509 Epileptic seizures related to external causes, not intractable, without status epilepticus; J45.20 Mild intermittent asthma, uncomplicated; L80 Vitiligo; L81.5 Leukoderma, not elsewhere classified; Z56.0 Unemployment, unspecified; Z59.00 Homelessness unspecified
CPT/HCPCS: 36415; 80053; 80305; 80307; 82247; 85027

== ENCOUNTER 2024-07-11 12:21 | Inpatient (IN) | payer OTHER ==
[2024-07-11 13:12] VITALS: BMI 20.9
[2024-07-11] MEDS ORDERED: ACETAMINOPHEN 325 MG TABLET (FP) PO PRN (13:48)
[2024-07-11] MEDS ORDERED: guaiFENesin 600 MG TABLET.ER (FP) PO PRN (13:48)
[2024-07-11] MEDS ORDERED: NICOTINE POLACRILEX 2 MG LOZENGE BC PRN (13:48)
[2024-07-11] MEDS ORDERED: IBUPROFEN 400 MG TABLET (FP) PO PRN (13:48)
[2024-07-11] MEDS ORDERED: BISMUTH SUBSALICYLATE 524 MG/30 ML PO PRN (13:48)
[2024-07-11] MEDS ORDERED: NALOXONE (NARCAN) HCL 4 MG/0.1 ML SPRAY NS PRN (13:48)
[2024-07-11] MEDS ORDERED: DICYCLOMINE HCL 10 MG CAPSULE PO PRN (13:48)
[2024-07-11] MEDS ORDERED: MAGNESIUM HYDROX 2400MG/30ML ORAL SUSPENSION 30 ML CUP PO PRN (13:48)
[2024-07-11] MEDS ORDERED: MAG HYDROX/AL HYDROX/SIMETH 30 ML UNIT-DOSE CUP PO PRN (13:48)
[2024-07-11] MEDS ORDERED: hydrOXYzine PAMOATE 25 MG CAPSULE (FP) PO PRN (13:48)
[2024-07-11] MEDS ORDERED: LOPERAMIDE HCL 2 MG CAPSULE PO PRN (13:48)
[2024-07-11] MEDS ORDERED: BENZOCAINE/MENTHOL (CHLORASEPTIC ) LOZENGE MM PRN (13:48)
[2024-07-11] MEDS ORDERED: chlordiazePOXIDE HCL 25 MG CAPSULE PO PRN (13:48)
[2024-07-11] MEDS ORDERED: ONDANSETRON *ODT* 4 MG TABLET SL PRN (13:48)
[2024-07-11] MEDS ORDERED: POLYETHYLENE GLYCOL (HEALTHYLAX) 3350 17 GM PACKET PO PRN (13:48)
[2024-07-11] MEDS ORDERED: NICOTINE POLACRILEX 2 MG GUM BUC PRN (13:48)
[2024-07-11] MEDS ORDERED: BENZONATATE 200 MG CAPSULE PO PRN (13:48)
[2024-07-11] MEDS ORDERED: IBUPROFEN 600 MG TABLET (FP) PO PRN (13:48)
[2024-07-11] MEDS ORDERED: ALBUTEROL SO4 HFA INHALER IH PRN (13:50)
[2024-07-11] MEDS: BUDESONIDE/FORMETEROL FUMARATE 160/4.5 mcg INHALER IH SCH (16:07)
[2024-07-11] MEDS ORDERED: chlordiazePOXIDE HCL 25 MG CAPSULE ONE (16:59)
[2024-07-11] MEDS: chlordiazePOXIDE HCL 25 MG CAPSULE PO SCH (17:01)
[2024-07-11] MEDS: levETIRAcetam 500 MG TABLET (FP) PO SCH (22:33)
[2024-07-11] MEDS: THIAMINE 100 MG TABLET PO SCH (22:33)
[2024-07-11] MEDS: METHOCARBAMOL 500 MG TABLET PO PRN (22:33)
[2024-07-11] MEDS: MELATONIN 5 MG TABLETS PO SCH (22:35)
[2024-07-12] MEDS: PRENATAL VITAMINS W/ FOLIC ACID TABLET (FP) PO SCH (10:06)
[2024-07-12] MEDS: NICOTINE 14 MG/24 HOURS TOPICAL PATCH TD SCH (10:07)
[2024-07-12 11:19] LABS: MCH 32.6 pg (25.7-33.7); MCHC 33.4 g/dl (32.0-35.9); MEAN CELL VOLUME 97.6 fl (80-96); MEAN PLT VOLUME 10.1 fl (7.5-11.1); PLATELET COUNT 166 10^3/uL (134-434); RBC 3.99 M/mm3 (4.00-5.60); RDW 13.2 % (11.9-15.9); WHITE BLOOD COUNT 3.5 K/mm3 (4.0-10.0)
[2024-07-12 11:25] LABS: POTASSIUM 4.1 mmol/L (3.5-5.1)
[2024-07-12 11:32] LABS: CALCIUM 9.5 mg/dL (8.5-10.1)
[2024-07-12 11:34] LABS: ALBUMIN 3.5 g/dl (3.4-5.0); BLOOD UREA NITROGEN 7.3 mg/dL (7-18)
[2024-07-12 11:36] LABS: CREATININE 0.6 mg/dL (0.55-1.3)
[2024-07-12 11:38] LABS: BILIRUBIN,TOTAL 0.8 mg/dL (0.2-1); TOT PROT 6.3 g/dl (6.4-8.2)
[2024-07-13] MEDS: chlordiazePOXIDE HCL 25 MG CAPSULE PO SCH (05:24)
[2024-07-13 16:50] VITALS: BP 117/79; PULSE 86; RESP 18; TEMP 98.6
[2024-07-13] MEDS: NALOXONE (NYS OPIOID OVERDOSE PROGRAM) 4 MG/0.1 ML SPRAY NS SCH (19:33)
[2024-07-14] MEDS ORDERED: chlordiazePOXIDE HCL 10 MG CAPSULE PO PRN
[2024-07-14] MEDS ORDERED: chlordiazePOXIDE HCL 10 MG CAPSULE PO SCH (05:00)
[2024-07-15] MEDS ORDERED: chlordiazePOXIDE HCL 10 MG CAPSULE PO SCH (05:00)
[2024-07-16] MEDS ORDERED: chlordiazePOXIDE HCL 10 MG CAPSULE PO ONE (05:00)
== END 2024-07-13 19:36 | disposition left against medical advice (07) | DRG 770 ==
LOC: YASAS 12:21 → Y3N 14:17
PROVIDERS: ADMIT Allergy & Immunology; ATTEND Surgery
PROC: HZ2ZZZZ Detoxification Services for Substance Abuse Treatment (ICD-10-PCS; principal; 2024-07-11)
DX: F10.230 Alcohol dependence with withdrawal, uncomplicated (principal); F41.9 Anxiety disorder, unspecified; F32.A Depression, unspecified; G40.909 Epilepsy, unspecified, not intractable, without status epilepticus; J45.20 Mild intermittent asthma, uncomplicated; L80 Vitiligo; Z59.01 Sheltered homelessness
CPT/HCPCS: 36415; 80053; 80177; 80305; 80307; 85027; 86780; 93005; 93010